=== PATIENT | male | born 1965 | race Caucasian/White ===

== ENCOUNTER 2019-01-28 00:36 | Emergency (ER) | payer BC ==
[~2019-01-28] VITALS: Ht 177.8 cm; Wt 119.7 kg
[2019-01-28 00:40] VITALS: BP 169/71; Ht 177.8 cm; Wt 119.7 kg
== END 2019-01-28 01:06 | disposition home or self-care (01) ==
LOC: ED 00:36
DX: C43.71 Malignant melanoma of right lower limb, including hip (principal); Z48.01 Encounter for change or removal of surgical wound dressing